=== PATIENT | male | born 1985 | race Caucasian/White ===

== ENCOUNTER 2018-12-03 08:39 | Emergency (ER) | payer MEDICAID ==
[~2018-12-03] VITALS: Wt 90.0 kg
[2018-12-03 08:42] VITALS: BP 140/76; PULSE 90; RESP 18
[2018-12-03] MEDS ORDERED: TETANUS IMMUNE GLOB 250 UNIT SYG IM ONE (09:30)
[2018-12-03] MEDS ORDERED: LIDOCAINE 1% (MDV) 20 ML INJ SC ONE (09:30)
[2018-12-03] MEDS ORDERED: DIPHTH/TET/ACEL PERTUSS (ADULT) 0.5 ML VIAL IM* ONE (09:30)
--- NOTE | 2018-12-03 09:42 | ERD ---
ER Documentation Chief Complaint Chief Complaint left leg lac HPI 33-year-old male presenting to the ED for laceration on left leg. Patient states he was at work when he broke a window and a piece of the glass cut his leg. Patient denies any LOC. Patient states he did not have any other injuries. Patient is unaware of his last tetanus shot. Patient is able to ambulate without any motor deficits. Patient is not actively bleeding and wra pped his leg with a bandage and was brought to the ER. Medications ROS All systems reviewed and are negative except as per history of present illness. Allergies Allergies: Coded Allergies: No Known Allergy (Unverified , 12/03/18) PMhx/Soc Medical and Surgical Hx: pt denies Medical Hx, pt denies Surgical Hx Hx Alcohol Use: Yes Hx Substance Use: No Hx Tobacco Use: Yes Smoking Status: Current every day smoker FmHx Family History: No diabetes, No coronary disease, No other Physical Exam Vitals Vital Signs Date Temp Pulse Resp B/P (MAP) Pulse Ox O2 O2 Flow FiO2 Time Delivery Rate 12/03/18 98.0 90 18 140/76 99 08:42 (97) Physical Exam Const: No acute distress Head: Atraumatic Resp: Clear to auscultation bilaterally Cardio: Regular rate and rhythm, no murmurs Ext: 4 cm superficial laceration left leg, patient has good pulse motor sensation in the extremity. No signs of foreign body. Results 24 hrs Current Medications Medications Dose Sig/Frances Start Time Status Last (Trade) Ordered Route PRN Stop Time Admin Dose Reason Admin Lidocaine 20 ml ONCE ONCE 12/03/18 DC (Xylocaine SC 09:30 1% (Mdv) 20 12/03/18 09:31 ml) Tetanus 250 units ONCE ONCE 12/03/18 UNV Immune IM 09:30 Globulin 12/03/18 09:31 (Hypertet S/D) Diphtheria/ 0.5 ml ONCE ONCE 12/03/18 DC 12/03/18 Tetanus/Acell IM* 09:30 09:18 Pertussis 12/03/18 09:31 (Adacel) Procedures/MDM ER course: Patient seen in ER for 4 cm laceration anterior left leg. Patient was given 1% lidocaine, wound was irrigated thoroughly with normal saline. Patient's laceration was sutured in sterile field. Steri-Strips placed. MDM: Male presenting with laceration to left leg. Neurovascular exam was unremarkable. No signs of foreign body retention. Wound was irrigated thoroughly with normal saline. Patient neurovascular check was unremarkable after suture placement. Patient received tetanus shot Procedure:Laceration Repair by me: Anesthesia: 1% lidocaine locally Location: Left anterior left Tendon/Joint/Nerves: No injury Foreign body:None detected after copious irrigation and exploration Technique: 4-0 Simple Interrupted Sutures Complexity:No subcutaneous sutures/mucosal repair/edge excision Post Closure Length: 4 cm 5 stitches placed. Patient's bleeding was easily controlled in the department and there is no indication of anemia. No evidence of compartment syndrome, neurologic injury, vascular injury, open joint, tendon laceration, or foreign body. Patient is appropriate for outpatient follow up. 48 hour wound check. Scar minimization instructions given. At this time of discharge I have low suspicion of compartment syndrome, tendon or muscle injury, sepsis. The patient has good pulse motor and sensation extremity. The wound was thoroughly irrigated prior to suture placement. I have low suspicion of any foreign body retained. The patient was advised on how to properly care for the wound and keep the area clean. The patient was given tetanus booster. No antibiotics were given due to the mechanism of injury of being cut on glass. Patient received tetanus vaccination in ED and was advised if wound has discharge or patient experiences pain, fever body chills or discomfort to return to the ED. Patient was advised to return to ER if symptoms worsen patient was advised to have a wound check in 2 days by primary care. Patient was advised to have sutures removed within 5 to 7 days. Patient had no further questions upon discharge. Disclaimer: Inadvertent spelling and grammatical errors are likely due to the ED HR/dictation software use and do not reflect on the overall quality of patient care. Also, please note that the electronic time recorded on this note does not reflect the actual time of the patient encounter. Departure Diagnosis: Primary Impression: Leg laceration Encounter type: initial encounter Laterality: left Qualified Codes: S81.812A - Laceration without foreign body, left lower leg, initial encounter Condition: Stable Patient Instructions: Caring for Your Wound Referrals: [facility] Additional Instructions: Advised patient to follow-up in 2 days for wound care check. Patient was a dvised that sutures need to be removed within 5 to 7 days. Patient was advised to return to ER if symptoms worsen. DORA MARCH PA-C 28, 2019 09:17
== END 2018-12-03 10:06 | disposition home or self-care (01) ==
LOC: FTE 08:39
DX: S81.812A Laceration without foreign body, left lower leg, initial encounter (principal); F17.210 Nicotine dependence, cigarettes, uncomplicated; W25.XXXA Contact with sharp glass, initial encounter; Y92.9 Unspecified place or not applicable; Z23 Encounter for immunization
CPT/HCPCS: 12002; 90471; 90715; Z7502; Z7610